=== PATIENT | female | born 1990 | race Caucasian/White ===

== ENCOUNTER 2024-04-20 11:29 | Inpatient (IN) | payer BC ==
[2024-04-20] MEDS ORDERED: hydrALAZINE 20 MG/ML VIAL SLOW IVP PRN ×2 (14:39→17:29)
[2024-04-20] MEDS ORDERED: Methylergonovine 0.2 MG/ML VIAL IM PRN (17:29)
[2024-04-20] MEDS ORDERED: fentaNYL 50 mcg/mL 1 mL Vial SLOW IVP PRN (17:29)
[2024-04-20] MEDS ORDERED: Carboprost 250 MCG/ML AMP IM PRN (17:29)
[2024-04-20] MEDS ORDERED: Promethazine HCl 25 MG/ML VIAL IM PRN (17:29)
[2024-04-20] MEDS ORDERED: Misoprostol 200 MCG TAB PR PRN (17:29)
[2024-04-20] MEDS ORDERED: Acetaminophen 500 MG TAB PO PRN (17:29)
[2024-04-20] MEDS ORDERED: Diphenoxylate HCl/Atropine Tablet PO PRN (17:29)
[2024-04-20] MEDS ORDERED: Ondansetron PF 4 MG/2 ML Vial IVP PRN (17:29)
[2024-04-20] MEDS ORDERED: Oxytocin 30 units/NS 500 ML 500 ML IV SCH (17:30)
[2024-04-20] MEDS ORDERED: Lidocaine 1% (PF) 30 ML VIAL SC PRN (17:35)
[2024-04-20] MEDS ORDERED: Ibuprofen 800 MG TAB PO PRN (17:35)
[2024-04-20] MEDS ORDERED: HYDROcodone/Acetaminophen 5/325 mg Tablet PO PRN (17:35)
[2024-04-20 18:30] LABS: Hematocrit 27.3 % (34.9-44.5); Hemoglobin 8.4 g/dL (12.0-15.5); Mean Corpuscular HGB CONC 30.8 g/dL (32.0-36.0); Mean Corpuscular Hemoglobin 24.3 pg (27.0-33.0); Mean Corpuscular Volume 79.1 fL (81.6-98.3); Mean Platelet Volume 10.5 fL (7.4-10.4); Platelet Count 200 10x3/uL (150-450); RBC Distribution Width 14.8 % (11.5-14.5); Red Blood Cell (RBC) Count 3.45 10x6/uL (3.90-5.03); White Blood Cell (WBC) Count 8.8 10x3/uL (3.5-10.5)
[2024-04-20 19:05] LABS: HBsAg Index 0.22 S/CO (0-0.99); Hep B Surf Ag - L&D Non-Reactive S/CO (NonReactive); Syphilis Antibody Nonreactive (Nonreactive); Syphilis Antibody Index 0.06 S/CO (<1.00 Non-Reactive)
[2024-04-21] MEDS: Lactated Ringer's 1,000 ML IV SCH (00:31)
[2024-04-21] MEDS: CEFAZOLIN 1 GM in Sodium Chloride 0.9% 100 ML IVPB SCH (00:35)
[2024-04-21 01:19] VITALS: BMI 23.8
== END 2024-04-21 02:35 | disposition home health service (06) | DRG 833 ==
LOC: CSHLD/OP 11:29 → CSHLD 17:37
PROVIDERS: ADMIT Obstetrics & Gynecology; ATTEND Obstetrics & Gynecology
DX: O60.03 Preterm labor without delivery, third trimester (principal); Z3A.35 35 weeks gestation of pregnancy
CPT/HCPCS: 85027; 86780; 86850; 86870; 86900; 86901; 86922; 87340; 99285; J0690; J7120